=== PATIENT | female | born 2000 | race American Indian/Alaskan Native ===

== ENCOUNTER 2019-06-14 20:46 | Emergency (ER) | payer SELFPAY ==
--- NOTE | 2019-06-14 21:23 | Event Note ---
ED Screening Note Date of service: 06/14/19 Time: 21:18 ED Screening Note: This is a 19 y.o. F. that presents to the ER with right flank pain, nausea, and vomiting since 1700. LMP 05/20/2019 This initial assessment/diagnostic orders/clinical plan/treatment(s) is/are subject to change based on patients health status, clinical progression and re- assessment by fellow clinical providers in the ED. Further treatment and workup at subsequent clinical providers discretion. Patient/guardian urged not to elope from the ED as their condition may be serious if not clinically assessed and managed. Initial orders include: Labs and CT of abdomen and pelvis
[2019-06-14 21:51] LABS: Basophils % (Auto) 0.5 % (0.0-1.8); Hematocrit 33.2 % (30.3-42.9); Hemoglobin 11.1 gm/dl (10.1-14.3); Lymphocytes # (Auto) 0.8 K/mm3 (1.2-5.4); Lymphocytes % (Auto) 9.1 % (13.4-35.0); Mean Corpuscular HGB Conc 33 % (30-34); Mean Corpuscular Volume 83 fl (79-97); Monocytes # (Auto) 0.4 K/mm3 (0.0-0.8); Monocytes % (Auto) 4.2 % (0.0-7.3); Platelet Count 175 K/mm3 (140-440); Red Blood Count 4.03 M/mm3 (3.65-5.03); Red Cell Distribution Width 14.5 % (13.2-15.2)
[2019-06-14 22:25] LABS: Alanine Aminotransferase 11 units/L (7-56); Albumin 4.2 g/dL (3.9-5); BUN/Creatinine Ratio 18; Blood Urea Nitrogen 18 mg/dL (7-17); Hemolysis Index 18
[2019-06-14] MEDS ORDERED: NACL 0.9% 1000 ML 1,000 ML IV ONE (23:32)
[2019-06-14] MEDS ORDERED: ZOFRAN IV ONE (23:32)
[2019-06-14] MEDS ORDERED: TORADOL IV ONE (23:32)
--- NOTE | 2019-06-14 23:35 | Emergency Department Report ---
ED Back Pain/Injury HPI - General Chief Complaint: Back Pain/Injury Stated Complaint: BACK PAIN Time Seen by Provider: 06/14/19 21:18 Source: patient Limitations: No Limitations - History of Present Illness Initial Comments: Patient is a 19-year-old female presents to the emergency room with complaints of right flank and right lower back pain that began at 5 PM today. She has associated nausea and vomiting. she denies any urinary symptoms, diarrhea or fever. States her last bowel movement was 2 days ago. she does not report any vaginal discharge or vaginal complaints. She has never had this before. She states her LNMP was May 26. Denies any past medical history, allergies medications, abdominal surgeries. - Related Data Previous Rx's Medication Instructions Recorded Last Taken Type Ibuprofen [Motrin 800 MG tab] 800 mg PO Q8HR PRN #14 tablet 06/15/19 Unknown Rx Ondansetron [Zofran Odt] 4 mg PO Q8HR PRN #14 tab.rapdis 06/15/19 Unknown Rx Phenazopyridine [Pyridium] 200 mg PO BID PRN #14 tab 06/15/19 Unknown Rx cephALEXin [Keflex] 500 mg PO BID 7 Days #14 cap 06/15/19 Unknown Rx Allergies Allergy/AdvReac Type Severity Reaction Status Date / Time No Known Allergies Allergy Unverified 06/14/19 21:19 ED Review of Systems ROS: Stated complaint: BACK PAIN Other details as noted in HPI Comment: All other systems reviewed and negative ED Past Medical Hx - Past Medical History Previous Medical History?: Yes Additional medical history: Ovarian cyst - Surgical History Past Surgical History?: No - Social History Smoking Status: Never Smoker - Medications Home Medications: Home Medications Medication Instructions Recorded Confirmed Last Taken Type Ibuprofen [Motrin 800 MG tab] 800 mg PO Q8HR PRN #14 tablet 06/15/19 Unknown Rx Ondansetron [Zofran Odt] 4 mg PO Q8HR PRN #14 tab.rapdis 06/15/19 Unknown Rx Phenazopyridine [Pyridium] 200 mg PO BID PRN #14 tab 06/15/19 Unknown Rx cephALEXin [Keflex] 500 mg PO BID 7 Days #14 cap 06/15/19 Unknown Rx ED Physical Exam - General Limitations: No Limitations General appearance: alert, in no apparent distress - Head Head exam: Present: atraumatic, normocephalic - Eye Eye exam: Present: normal appearance - ENT ENT exam: Present: mucous membranes moist - Respiratory Respiratory exam: Present: normal lung sounds bilaterally. Absent: respiratory distress, wheezes, rales, rhonchi, stridor, chest wall tenderness, accessory muscle use, decreased breath sounds, prolonged expiratory - Cardiovascular Cardiovascular Exam: Present: regular rate, normal rhythm, normal heart sounds. Absent: systolic murmur, diastolic murmur, rubs, gallop - GI/Abdominal GI/Abdominal exam: Present: soft, normal bowel sounds. Absent: distended, tenderness, guarding, rebound, rigid - Back Exam Back exam: Present: CVA tenderness (R) - Neurological Exam Neurological exam: Present: alert, oriented X3 - Psychiatric Psychiatric exam: Present: normal affect, normal mood - Skin Skin exam: Present: warm, dry, intact ED Course Vital Signs 06/14/19 06/15/19 06/15/19 20:51 00:59 03:14 Temperature 97.7 F 98.3 F Pulse Rate 75 76 Respiratory 18 16 16 Rate Blood Pressure 137/86 Blood Pressure 115/64 [Right] O2 Sat by Pulse 100 100 Oximetry ED Medical Decision Making - Lab Data Result diagrams: 06/14/19 21:38 06/14/19 21:38 Lab Results 06/14/19 06/14/19 06/14/19 Range/Units 21:38 21:38 21:38 WBC 8.7 (4.5-11.0) K/mm3 RBC 4.03 (3.65-5.03) M/mm3 Hgb 11.1 (10.1-14.3) gm/dl Hct 33.2 (30.3-42.9) % MCV 83 (79-97) fl MCH 28 (28-32) pg MCHC 33 (30-34) % RDW 14.5 (13.2-15.2) % Plt Count 175 (140-440) K/mm3 Lymph % (Auto) 9.1 L (13.4-35.0) % [place] % (Auto) 4.2 (0.0-7.3) % Eos % (Auto) 0.0 (0.0-4.3) % Baso % (Auto) 0.5 (0.0-1.8) % Lymph # 0.8 L (1.2-5.4) K/mm3 [place] # 0.4 (0.0-0.8) K/mm3 Eos # 0.0 (0.0-0.4) K/mm3 Baso # 0.0 (0.0-0.1) K/mm3 Seg Neutrophils % 86.2 H (40.0-70.0) % Seg Neutrophils # 7.5 (1.8-7.7) K/mm3 Sodium 136 L (137-145) mmol/L Potassium 4.0 (3.6-5.0) mmol/L Chloride 102.1 (98-107) mmol/L Carbon Dioxide 22 (22-30) mmol/L Anion Gap 16 mmol/L BUN 18 H (7-17) mg/dL Creatinine 1.0 (0.7-1.2) mg/dL Estimated GFR > 60 ml/min BUN/Creatinine Ratio 18 % Glucose 122 H (65-100) mg/dL Calcium 9.0 (8.4-10.2) mg/dL Total Bilirubin 0.40 (0.1-1.2) mg/dL AST 21 (5-40) units/L ALT 11 (7-56) units/L Alkaline Phosphatase 46 (35-129) units/L Total Protein 8.3 H (6.3-8.2) g/dL Albumin 4.2 (3.9-5) g/dL Albumin/Globulin Ratio 1.0 % HCG, Qual Negative (Negative) Urine Color (Yellow) Urine Turbidity (Clear) Urine pH (5.0-7.0) Ur Specific [place] (1.003-1.030) Urine Protein (Negative) mg/dL Urine Glucose (UA) (Negative) mg/dL Urine Ketones (Negative) mg/dL Urine Blood (Negative) Urine Nitrite (Negative) Urine Bilirubin (Negative) Urine Urobilinogen (<2.0) mg/dL Ur Leukocyte Esterase (Negative) Urine WBC (Auto) (0.0-6.0) /HPF Urine RBC (Auto) (0.0-6.0) /HPF U Epithel Cells (Auto) (0-13.0) /HPF Urine Bacteria (Auto) (Negative) /HPF Urine Mucus /HPF 06/14/19 Range/Units 23:30 WBC (4.5-11.0) K/mm3 RBC (3.65-5.03) M/mm3 Hgb (10.1-14.3) gm/dl Hct (30.3-42.9) % MCV (79-97) fl MCH (28-32) pg MCHC (30-34) % RDW (13.2-15.2) % Plt Count (140-440) K/mm3 Lymph % (Auto) (13.4-35.0) % [place] % (Auto) (0.0-7.3) % Eos % (Auto) (0.0-4.3) % Baso % (Auto) (0.0-1.8) % Lymph # (1.2-5.4) K/mm3 [place] # (0.0-0.8) K/mm3 Eos # (0.0-0.4) K/mm3 Baso # (0.0-0.1) K/mm3 Seg Neutrophils % (40.0-70.0) % Seg Neutrophils # (1.8-7.7) K/mm3 Sodium (137-145) mmol/L Potassium (3.6-5.0) mmol/L Chloride (98-107) mmol/L Carbon Dioxide (22-30) mmol/L Anion Gap mmol/L BUN (7-17) mg/dL Creatinine (0.7-1.2) mg/dL Estimated GFR ml/min BUN/Creatinine Ratio % Glucose (65-100) mg/dL Calcium (8.4-10.2) mg/dL Total Bilirubin (0.1-1.2) mg/dL AST (5-40) units/L ALT (7-56) units/L Alkaline Phosphatase (35-129) units/L Total Protein (6.3-8.2) g/dL Albumin (3.9-5) g/dL Albumin/Globulin Ratio % HCG, Qual (Negative) Urine Color [place] (Yellow) Urine Turbidity Slightly-cloudy (Clear) Urine pH 5.0 (5.0-7.0) Ur Specific [place] 1.031 H (1.003-1.030) Urine Protein 100 mg/dl (Negative) mg/dL Urine Glucose (UA) Neg (Negative) mg/dL Urine Ketones 80 (Negative) mg/dL Urine Blood Lg (Negative) Urine Nitrite Neg (Negative) Urine Bilirubin Neg (Negative) Urine Urobilinogen < 2.0 (<2.0) mg/dL Ur Leukocyte Esterase Neg (Negative) Urine WBC (Auto) 19.0 H (0.0-6.0) /HPF Urine RBC (Auto) > 182.0 (0.0-6.0) /HPF U Epithel Cells (Auto) 5.0 (0-13.0) /HPF Urine Bacteria (Auto) 1+ (Negative) /HPF Urine Mucus 3+ /HPF - Radiology Data Radiology results: report reviewed CT of the abdomen and pelvis without contrast INDICATION: Right-sided pain COMPARISON: None FINDINGS: Lung bases are clear. The liver, spleen, pancreas, adrenal glands and kidneys show no abnormalities. No definite gallbladder or biliary tree abnormality. No fluid or adenopathy in the upper abdomen. CT of the pelvis shows no gross uterine masses. There may be a small 1 cm cyst in the left ovary. Right ovary however appears to contain a 4 x 4 centimeters cyst without free fluid. Appendix is not seen. No ureteral stones are seen. No stone fragments seen in the bladder. No hernia or bowel obstruction. No significant skeletal lesion. IMPRESSION: Moderate to large right ovarian cyst without free fluid. No kidney stone or appendicitis seen. Automated exposure control was utilized to diminish radiation dose. Signer Name: Cj Menjivar MD Signed: 06/14/2019 11:49 PM Workstation Name: [id number] Transcribed By: AURORA Dictated By: Cj Menjivar MD Electronically Authenticated By: Cj Menjivar MD Signed Date/Time: 06/14/19 1804 - Medical Decision Making Patient is a 19-year-old female presents to the emergency room with complaints of right flank and right lower back pain that began at 5 PM today. She has associated nausea and vomiting. she denies any urinary symptoms, diarrhea or fever. States her last bowel movement was 2 days ago. she does not report any vaginal discharge or vaginal complaints. She has never had this before. She states her LNMP was May 26. Denies any past medical history, allergies medications, abdominal surgeries. vitals are normal. labs WNL. UA with evidence of UTI. CT abd/pelvis shows Moderate to large right ovarian cyst without free fluid. No kidney stone or appendicitis seen. pt states that she has a known ovarian cyst and is seeing an [facility] and deciding if she is going to have surgery. pt given 1L NS, zofran, and toradol. pt had no further episodes of emesis. pt was able to tolerate PO intake. pt given prescription for abx, zofran, pyridium, and ibuprofen. advised to please take medication as prescribed. Drink plenty of water. Follow up with an [facility] in the next 2-3 days. Return to the emergency room for any new or worsening symptoms. - Differential Diagnosis nephrolithiasis, UTI, pyelonephritis Critical care attestation.: If time is entered above; I have spent that time in minutes in the direct care of this critically ill patient, excluding procedure time. ED Disposition Clinical Impression: Right flank pain Ovarian cyst Qualifiers: Laterality: right Qualified Code(s): N83.201 - Unspecified ovarian cyst, right side UTI (urinary tract infection) Qualifiers: Urinary tract infection type: acute cystitis Hematuria presence: with hematuria Qualified Code(s): N30.01 - Acute cystitis with hematuria Disposition: TO HOME OR SELFCARE Is pt being admited?: No Does the pt Need Aspirin: No Condition: Stable Instructions: Ovarian Cyst (ED), Urinary Tract Infection in Women (ED) Additional Instructions: please take medication as prescribed. Drink plenty of water. Follow up with an [facility] in the next 2-3 days. Return to the emergency room for any new or worsening symptoms. Prescriptions: cephALEXin [Keflex] 500 mg PO BID 7 Days #14 cap Ibuprofen [Motrin 800 MG tab] 800 mg PO Q8HR PRN #14 tablet PRN Reason: pain Phenazopyridine [Pyridium] 200 mg PO BID PRN #14 tab PRN Reason: pain Ondansetron [Zofran Odt] 4 mg PO Q8HR PRN #14 tab.rapdis PRN Reason: Nausea And Vomiting Referrals: [facility] [Provider Group] - 2-3 Days [facility] [Outside] - 2-3 Days [facility] [Provider Group] - 2-3 Days [facility] [Provider Group] - 2-3 Days [facility] [Provider Group] - 2-3 Days Time of Disposition: 01:08 Print Language: BURKIN[place]
--- NOTE | 2019-06-14 23:53 | Cat Scan Report ---
. CT of the abdomen and pelvis without contrast INDICATION: Right-sided pain COMPARISON: None FINDINGS: Lung bases are clear. The liver, spleen, pancreas, adrenal glands and kidneys show no abnor malities. No definite gallbladder or biliary tree abnormality. No fluid or adenopathy in the upper ab domen. CT of the pelvis shows no gross uterine masses. There may be a small 1 cm cyst in the left ovary. Rig ht ovary however appears to contain a 4 x 4 centimeters cyst without free fluid. Appendix is not seen . No ureteral stones are seen. No stone fragments seen in the bladder. No hernia or bowel obstruction . No significant skeletal lesion. IMPRESSION: Moderate to large right ovarian cyst without free fluid. No kidney stone or appendicitis seen. Automated exposure control was utilized to diminish radiation dose. Signer Name: Cj Menjivar MD Signed: 06/14/2019 11:49 PM Workstation Name: [id number]
[2019-06-15 00:03] LABS: Bacteria,Urine 1+ /HPF (Negative); Bilirubin,Urine NEG (Negative); Blood,Urine LG (Negative); Color,Urine Amber (Yellow); Mucus,Urine 3+ /HPF; Urobilinogen,Urine < 2.0 mg/dL (<2.0)
[2019-06-15 00:05] LABS: RBC,Urine > 182.0 /HPF (0.0-6.0)
[2019-06-15 03:16] VITALS: BP 115/64
== END 2019-06-15 03:14 | disposition home or self-care (01) ==
LOC: ED 20:46
DX: N83.201 Unspecified ovarian cyst, right side (principal); N39.0 Urinary tract infection, site not specified; Z79.899 Other long term (current) drug therapy
CPT/HCPCS: 36415; 74176; 80053; 81001; 84703; 85025; 87086; 96361; 96374; 96375; 99284; J1885; J2405; J7030